=== PATIENT | male | born 1965 | race Caucasian/White ===

== ENCOUNTER 2021-08-06 02:24 | Observation (INO) | payer OTHER ==
[2021-08-06] MEDS ORDERED: ceFAZolin 2 GM/DEX 5% 100 ML BAG ONE ×2 (02:46→09:41)
[2021-08-06] MEDS ORDERED: Cyclobenzaprine 10 MG TAB PO PRN (02:54)
[2021-08-06] MEDS ORDERED: traMADol HCl 50 MG TAB PO PRN (02:54)
[2021-08-06] MEDS ORDERED: Ibuprofen 600 MG TAB PO PRN (02:54)
[2021-08-06] MEDS ORDERED: Dextrose 5% in Water 1,000 ML IV PRN (02:56)
[2021-08-06] MEDS ORDERED: hydrALAZINE 20 MG/ML VIAL SLOW IVP PRN (02:56)
[2021-08-06] MEDS ORDERED: Ondansetron PF 4 MG/2 ML Vial IVP PRN (02:56)
[2021-08-06] MEDS ORDERED: Dextrose 50% Abboject 50 ML SYRINGE SLOW IVP PRN (02:56)
[2021-08-06] MEDS ORDERED: HumaLOG 300 UNITS/3 ML VIAL SC PRN (02:56)
[2021-08-06] MEDS ORDERED: Promethazine HCl 25 MG/ML VIAL IM PRN (02:56)
[2021-08-06] MEDS ORDERED: TETANUS, DIPHTHERIA TOX,ADULT (TDVAX) 0.5 ML VIAL IM ONE (03:07)
[2021-08-06 04:02] LABS: SARS-CoV-2 NAA Rapid Test Not Detected (NotDetected)
[2021-08-06 04:45] VITALS: BMI 43.4
[2021-08-06] MEDS: Morphine 4 MG/ML VIAL SLOW IVP PRN ×2 (04:51→15:13)
[2021-08-06] MEDS: Sodium Chloride 0.9% 1,000 ML IV SCH ×2 (04:54→11:00)
[2021-08-06] MEDS: traMADol HCl 50 MG TAB PO SCH ×2 (05:40→12:00)
[2021-08-06] MEDS: Acetaminophen 325 MG TAB PO SCH ×2 (05:41→12:00)
[2021-08-06 06:18] LABS: #Basophils 0.1 thou/uL (0.0-0.2); #Eosinphils 0.1 thou/uL (0.0-0.7); #Lymphocytes 2.6 thou/uL (1.20-3.40); #Monocytes 0.8 thou/uL (0.11-0.59); #Neutrophils 7.2 thou/uL (1.40-6.50); %Basophils 0.8 % (0.0-1.0); %Eosinophils 1.3 % (0.0-10.0); %Lymphocytes 23.7 % (21.0-51.0); %Neutrophils 67.2 % (42.0-75.0); Hemoglobin 15.1 g/dL (14.0-18.0); Mean Corpuscular HGB CONC 34.8 g/dL (32.0-36.0); Mean Corpuscular Hemoglobin 33.5 pg (27.0-31.0); Mean Corpuscular Volume 96.3 fL (78.0-98.0); Mean Platelet Volume 8.3 fL (7.4-10.4); Platelet Count 170 thou/uL (130-400); RBC Distribution Width 11.5 % (11.5-14.5); Red Blood Cell (RBC) Count 4.51 mill/uL (4.70-6.10); White Blood Cell (WBC) Count 10.8 thou/uL (4.8-10.8)
[2021-08-06 06:27] LABS: INR-International Normal Ratio 1.1; PTT 31.3 sec (22.9-36.1); Prothrombin Time 14.2 sec (12.0-14.7)
[2021-08-06 06:32] LABS: Anion Gap 14 mmol/L (10-20); BUN (Urea Nitrogen) 28 mg/dL (8.4-25.7); Calc. Creatinine Clearance 237 mL/min (70-130); Calcium 9.1 mg/dL (7.8-10.44); Carbon Dioxide 25 mmol/L (22-29); Chloride 100 mmol/L (98-107); Glucose 158 mg/dL (70-105); Magnesium 1.8 mg/dL (1.6-2.6); Phosphorus 3.4 mg/dL (2.3-4.7); Potassium 3.6 mmol/L (3.5-5.1); Sodium 135 mmol/L (136-145)
[2021-08-06] MEDS: Potassium Chloride 10 MEQ in Premix Bag 1 BAG IVPB SCH ×5 (08:05→15:10)
[2021-08-06 08:06] VITALS: BP 129/77; TEMP 98.2
[2021-08-06] MEDS ORDERED: Senokot S 8.6-50 MG TAB PO SCH (09:00)
[2021-08-06] MEDS ORDERED: Polyethylene Glycol 3350 17 GM Packet PO SCH (09:00)
[2021-08-06] MEDS ORDERED: Bupivacaine PF 0.5% 30 ML VIAL ONE (09:14)
[2021-08-06] MEDS ORDERED: Morphine 4 MG/ML VIAL ONE (09:35)
[2021-08-06] MEDS ORDERED: ceFAZolin Sodium/D5W 2 GM in Premix Bag 1 BAG IVPB SCH (11:00)
[2021-08-06] MEDS ORDERED: Fentanyl 100 MCG/2 ML VIAL ONE ×4 (11:24→13:49)
[2021-08-06] MEDS ORDERED: Succinylcholine 200 MG/10 ml SYRINGE FS ONE (11:47)
[2021-08-06] MEDS ORDERED: Dexamethasone 20 MG/5 ML VIAL ONE (11:47)
[2021-08-06] MEDS ORDERED: PROPOFOL 200 MG/20 ML VIAL ONE (11:47)
[2021-08-06] MEDS ORDERED: Ondansetron PF 4 MG/2 ML Vial ONE (11:47)
[2021-08-06] MEDS ORDERED: Lidocaine 1% PF 5 ML VIAL ONE (11:47)
[2021-08-06] MEDS ORDERED: Rocuronium Bromide 10 MG/ML (10ML VIAL) ONE (11:47)
[2021-08-06] MEDS ORDERED: Cephalexin 250 MG CAP PO SCH (12:00)
[2021-08-06] MEDS ORDERED: Labetalol HCl 100 MG/20 ML VIAL ONE (13:53)
== END 2021-08-06 17:55 | disposition home or self-care (01) ==
LOC: ERS 02:24 → SURG A 02:54
PROVIDERS: ADMIT Specialist; ATTEND Specialist
PROC: 0JQP0ZZ Repair Left Lower Leg Subcutaneous Tissue and Fascia, Open Approach (ICD-10-PCS; principal; 2021-08-06)
DX: S86.222A Laceration of muscle(s) and tendon(s) of anterior muscle group at lower leg level, left leg, initial encounter (principal); S81.822A Laceration with foreign body, left lower leg, initial encounter; G89.11 Acute pain due to trauma; I10 Essential (primary) hypertension; E78.5 Hyperlipidemia, unspecified; E11.9 Type 2 diabetes mellitus without complications; F17.210 Nicotine dependence, cigarettes, uncomplicated; F17.220 Nicotine dependence, chewing tobacco, uncomplicated; E66.9 Obesity, unspecified; Z68.41 Body mass index [BMI] 40.0-44.9, adult; Z79.899 Other long term (current) drug therapy; Z20.822 Contact with and (suspected) exposure to COVID-19; V27.4XXA Motorcycle driver injured in collision with fixed or stationary object in traffic accident, initial encounter
CPT/HCPCS: 36415; 36416; 71045; 83735; 84100; 85610; 85730; 86850; 86900; 86901; 96365; 96375; 96376; G0378; G0390; J1100; J2270; J2405; J2704; J3010; J3475; J3480; J3490; J7050; S0020; U0002

== ENCOUNTER 2022-05-11 09:50 | Outpatient (CLI) | payer OTHER | END 2022-05-11 09:51 | disposition home or self-care (01) | LOC: SCSMRI 09:50 → TBSIIMAG 09:51 | PROVIDERS: ATTEND Specialist | DX: M25.512 Pain in left shoulder (principal); M75.102 Unspecified rotator cuff tear or rupture of left shoulder, not specified as traumatic; M75.52 Bursitis of left shoulder; M19.012 Primary osteoarthritis, left shoulder ==

== ENCOUNTER 2023-09-06 14:05 | Outpatient (CLI) | payer OTHER | END 2023-09-06 14:06 | disposition home or self-care (01) | LOC: BICULT 14:05 | PROVIDERS: ATTEND Specialist | DX: M79.605 Pain in left leg (principal) ==

== ENCOUNTER 2023-09-13 13:25 | Outpatient (CLI) | payer OTHER | END 2023-09-13 13:26 | disposition home or self-care (01) | LOC: BICRAD 13:25 | PROVIDERS: ATTEND Plastic Surgery Surgery of the Hand | DX: M54.16 Radiculopathy, lumbar region (principal); M47.816 Spondylosis without myelopathy or radiculopathy, lumbar region | CPT/HCPCS: 72100 ==

== ENCOUNTER 2023-09-27 08:46 | Outpatient (CLI) | payer OTHER | END 2023-09-27 08:47 | disposition home or self-care (01) | LOC: SCSMRI 08:46 | PROVIDERS: ATTEND Specialist | DX: M47.816 Spondylosis without myelopathy or radiculopathy, lumbar region (principal); M51.36 Other intervertebral disc degeneration, lumbar region; M48.061 Spinal stenosis, lumbar region without neurogenic claudication | CPT/HCPCS: 72148 ==